=== PATIENT | female | born 1945 | race Caucasian/White ===

== ENCOUNTER 2016-10-27 15:57 | Inpatient (IN) | payer MEDICARE, BC ==
[~2016-10-27] VITALS: Ht 162.6 cm; Wt 60.8 kg
--- NOTE | ~2016-10-27 | DS ---
PATIENT'S NAME: ELIZABETH VAZQUEZ [facility] AGE: 71 Y [address] ROOM: [address] [place], [place] [address] LOCATION: [facility] [place] DATE: 10/27/2016 Discharge Summary DISCHARGE DATE: 10/28/2016 FAMILY PHYSICIAN: Linda Charles MD ATTENDING PHYSICIAN: Nola Carl ADMISSION MAIN DIAGNOSIS: Left thalamic enhancing mass/tumor. DISCHARGE MAIN DIAGNOSIS: Left thalamic enhancing mass/tumor. PROCEDURES DURING ADMISSION: None. COMPLICATIONS DURING ADMISSION: None. MEDICATIONS ON DISCHARGE: 1. Resume all pre-admission medications except aspirin and probiotic. 2. Dexamethasone 3 mg p.o. t.i.d. for 2 days, then 2 mg p.o. b.i.d. 3. Pepcid 20 mg p.o. b.i.d. while on dexamethasone. DISCHARGE INSTRUCTIONS AND FOLLOWUP APPOINTMENTS: 1. Call my office on October 30, 2016, if you decide to proceed with the stereotactic biopsy of left thalamic mass. 2. MRI brain with contrast Stealth protocol, on November 01, 2016, if the patient decides to proceed with surgery. 3. Call my office for any other concerns. 4. Seek immediate medical attention if having increasing headaches, new neurologic symptoms. HOSPITAL COURSE: The patient is a 71-year-old female patient, who was admitted to the hospital after brain MRI showed evidence of enhancing mass in the left thalamus associated with significant vasogenic edema. The patient had progressive right-sided weakness, leg more than the arm, and sensory loss on the right side. The patient was started on dexamethasone. On October 28, 2016, the patient had chest, abdomen, and pelvis CT scans and those showed no primary tumor, but showed evidence of a large right kidney simple cyst. I discussed the differential diagnoses of the left thalamic mass with the patient, her , and her brother. I clearly indicated that the metastatic workup is so far negative. I recommended stereotactic biopsy of left thalamic mass under the guidance of the Stealth in order to establish the diagnoses. I discussed the procedure with the patient and her brother. I discussed the benefits as well as the general and specific risks associated with it especially the risk of intratumor bleeding which may cause worsening of the existing deficits on the right side. The patient and her brother asked appropriate questions about my recommendation and all those questions were answered to their satisfaction. The patient would like to discuss my PATIENT'S NAME: ELIZABETH VAZQUEZ [facility] AGE: 71 Y [address] ROOM: [address] [place], [place] [address] LOCATION: [facility] [place] DATE: 10/27/2016 Discharge Summary DISCHARGE DATE: 10/28/2016 FAMILY PHYSICIAN: Linda Charles MD ATTENDING PHYSICIAN: Nola Carl recommendation with her family. The patient will inform my office with her decision on Sunday. If she wants to proceed with surgery, then we will arrange for a new MRI brain Stealth protocol with contrast to be done on November 01, 2016. The patient's physical examination on the day of discharge was stable. She denied headaches. She denied worsening of the weakness on the right side. Based on my assessment, I thought that the patient is stable for discharge, so the patient will be sent home today. NOLA CARL MD AB/modl /[id number] CC: Linda Charles MD d: 10/29/16 0231 t: 10/29/16 1204, DISCHARGE SUMMARY
--- NOTE | ~2016-10-27 | HP ---
PATIENT'S NAME: ELIZABETH VAZQUEZ [facility] AGE: 71 Y [address] ROOM: [place] [address] LOCATION: [facility] [place] ADMIT DATE: 10/27/2016 History & Physical DISCHARGE DATE: FAMILY PHYSICIAN: Linda Charles MD ATTENDING PHYSICIAN: NOLA MENDOZA DATE OF SERVICE: 10/27/2016 CHIEF COMPLAINT: Right-sided weakness, right-sided hemisensory loss, left thalamic tumor/mass. HISTORY OF PRESENT ILLNESS: The patient is a 71-year-old, right-handed female patient who started noticing weakness and sensory loss on the right upper and lower extremities about 2 weeks ago. Her symptoms slowly got worse. She was seen by her family physician and a brain MRI was obtained on October 24. The MRI showed an enhancing mass in the left thalamus. My office was contacted earlier today. I recommended assessing the patient in the emergency for further investigations. The patient was seen in the emergency. The patient was seen in the presence of her . They both confirmed the history. The patient denied headaches, visual disturbances. She denied seizures, symptoms on the left side. She reported having flu-like symptoms early October. She also reported a 20-pound weight loss. She denied loss of appetite, fever, or chills. She denied back pain, abdominal pain, or chest pain. PAST MEDICAL AND SURGICAL HISTORY: Ulcerative colitis, status post abdominal surgery for ulcerative colitis and gallbladder surgery, right renal cyst. MEDICATIONS: Aspirin 81 mg p.o. once daily, last dose taken 2 days ago. ALLERGIES: CODEINE. REVIEW OF SYSTEMS: All points review of systems were asked about. Pertinent positives were mentioned in HPI. FAMILY HISTORY: Her sister had thyroid and breast cancer. She also has a family history of polycystic kidney disease. SOCIAL HISTORY: The patient is . She denies smoking and alcohol drinking. PATIENT'S NAME: ELIZABETH VAZQUEZ [facility] AGE: 71 Y [address] ROOM: [place] [address] LOCATION: [facility] [place] ADMIT DATE: 10/27/2016 History & Physical DISCHARGE DATE: FAMILY PHYSICIAN: Linda Charles MD ATTENDING PHYSICIAN: NOLA MENDOZA PHYSICAL EXAMINATION: GENERAL: The patient was cooperative and pleasant. HEAD: It was atraumatic. NECK: No tenderness to palpation. Neck range of motion was painless. No palpable masses. LYMPHATIC: No cervical lymphadenopathy. BACK: The patient has thoracolumbar scoliosis. No tenderness to palpation. GAIT: It was slightly unsteady due to right leg weakness. ABDOMEN: It was soft and nontender to palpation. CARDIOVASCULAR: She had strong pulses on the upper and lower extremities. RESPIRATORY: She was not in any respiratory distress. SKIN: She has midline abdominal scar from previous surgery. MUSCULOSKELETAL: No evidence of muscle wasting. 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 NEUROLOGIC: The patient was alert and oriented. Cranial nerves examination was grossly normal. Pupils were equal and reactive. Visual gaines were full. Sensory examination showed right hemisensory loss to pinprick and light touch. Motor examination showed evidence of [id number] right leg weakness. No evidence of pronator drift. INVESTIGATIONS: MRI brain without and with contrast done on October 24. It showed evidence of age-related diffuse brain atrophy. It showed evidence of 2 x 2 cm enhancing mass located within the posterior aspect of the left thalamus. It also showed evidence of significant vasogenic edema around the mass. IMPRESSION: A 71-year-old female patient is presenting with 2-week history of right-sided weakness and sensory loss, is found on brain MRI to have enhancing mass within the right thalamus. The differential diagnosis includes infection, primary and secondary brain tumor. The patient has strong family history of cancer and polycystic kidney disease. PLAN: 1. Admission to the hospital. 2. Dexamethasone 4 mg p.o. q.6 hours. 3. Metastatic workup, CT chest, abdomen, and pelvis. I personally reviewed the imaging with the patient and pointed out the abnormalities. I clearly indicated that the MRI showed enhancing mass within the left thalamus. I discussed the differential diagnoses with the patient and her . I clearly indicated that further workup is needed. The patient and her asked appropriate questions and those were answered to their satisfaction. PATIENT'S NAME: ELIZABETH VAZQUEZ [facility] AGE: 71 Y [address] ROOM: [place] [address] LOCATION: [facility] [place] ADMIT DATE: 10/27/2016 History & Physical DISCHARGE DATE: FAMILY PHYSICIAN: Linda Charles MD ATTENDING PHYSICIAN: BADER,AHMAD MD SABINO RODRIGUEZ/thea /[id number] CC: Linda Charles MD D: [id number] T: [id number] HISTORY & PHYSICAL
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
[2016-10-27 18:56] LABS: BASOPHIL % 0.8 %; EOSINOPHIL # 0.1 K/uL (0.0-0.5); EOSINOPHIL % 1.9 %; HEMATOCRIT 48.1 % (33.0-46.0); HEMOGLOBIN 15.7 g/dL (10.0-15.0); IMMATURE GRANULOCYTE % 0.2 %; LYMPHOCYTE # 1.5 K/uL (0.8-4.0); LYMPHOCYTE % 31.1 %; MCH 29.2 pg (27.0-34.0); MCHC 32.6 gm/dL (32.0-36.5); MCV 89.4 fl (83.0-98.0); MONOCYTE # 0.4 K/uL (0.0-1.0); MONOCYTE % 8.1 %; MPV 9.6 fl (9.4-12.4); NEUTROPHIL # (ANC) 2.8 K/uL (1.8-7.8); NEUTROPHIL % 57.9 %; NRBC % 0 /100WBC (0-0.00); PLATELET COUNT 247 K/uL (150-450); RBC 5.38 M/uL (3.50-5.50); RDW-CV 12.8 % (11.9-14.6); WBC 4.8 K/uL (4.0-11.0)
[2016-10-27 19:05] LABS: PROTIME 10.6 SECONDS (9.6-11.1); PTT 29 SECONDS (25-32)
[2016-10-27 19:12] LABS: ALBUMIN 4.1 gm/dL (3.5-5.0); ANION GAP 8.7 (10.0-19.0); CALCIUM 9.5 mg/dL (8.5-10.5); CREATININE 1.1 mg/dL (0.5-1.1); POTASSIUM 3.7 mMol/L (3.7-5.1); TOTAL BILIRUBIN 0.6 mg/dL (0.0-1.5); TOTAL PROTEIN 8.3 g/dL (6.0-8.4)
[2016-10-27] MEDS ORDERED: OSCAL + D500 MG PO (21:21)
[2016-10-27] MEDS ORDERED: VITAMIN D-40400 UNIT PO (21:22)
[2016-10-27] MEDS ORDERED: PROBIOTIC1 EAC1 PO (21:23)
[2016-10-27] MEDS ORDERED: VITAMIN B-12500 MCG PO (21:23)
[2016-10-27] MEDS ORDERED: ASPIRIN (CHILDR81 MG PO (21:24)
--- NOTE | 2016-10-28 00:26 | NUR ---
Patient admitted to [facility] for L) thalmic tumor. Patient experiencing increased weakness over last week and a half. Went to GI to see and did MRI and found this tumor. Having increased R) sided weakness/numbness. History of ulcerative colotis with large intestine removed and pouch in place, several colonoscopies to check pouch, hysterectomy and appy in . Alert and orineted. Family history of cancer. Allergies to codeine. Fall risk and allergy bracelet on. Dr. Carl wrote orders.
--- NOTE | 2016-10-28 04:08 | NUR ---
Significant Event: Patient alert and oriented X4. R) sided weakness. Calls appropriately. Knows she needs assistance when up. NS running over [address] this am. Started at 2340, so hopefully will be done around 0730. L)wrist IV. Q6 [address] CT scan this AM. Vitals stable and on room air. Reports numbness to R) side. Cooperative with cares. Anxious about answers from Follow up: Monitor weakness
[2016-10-28] MEDS ORDERED: PEPCID20 MG PO (11:28)
[2016-10-28] MEDS ORDERED: DECADRON1 MG PO ×2 (11:31→11:36)
--- NOTE | 2016-10-28 15:47 | NUR ---
Significant Event: Pt up ad wan. denies dizzyness or weakness at this time. Neuro check and VS stable. Had CT this am. Dc to home at 1300 with family. States understanding of decadron which is a new med, follow up appointments, and to monitor for s/s or worsening symptoms. Follow up:
== END 2016-10-28 13:07 | disposition disaster alternative care site (69) | DRG 54 ==
LOC: GMED 15:57 → GMSU 20:24
PROVIDERS: ADMIT Neurological Surgery
DX: D49.6 Neoplasm of unspecified behavior of brain (principal); G93.6 Cerebral edema
CPT/HCPCS: J7030